=== PATIENT | male | born 1990 | race Caucasian/White ===

== ENCOUNTER 2018-02-21 06:52 | Day surgery (SDC) | payer BC ==
--- NOTE | 2018-02-20 21:36 | PDGENHP ---
History and Physical - Chief Complaint LEFT HIP PAIN - History of Present Illness Diagnosis: 1. Bilateral~Femoroacetabular impingement (VAIBHAV) Mixed type,~with~resultant labral tear 2. Bilateral~Early Osteoarthritis 3. ~~Clinical suspicion of femoral retrotorsion HISTORY OF PRESENT ILLNESS: Christelis a 27 y.o.~~~active male~who I have had the pleasure to consult on today. 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 Josh's~bilateral~hip pain (L>>>R)~started~1 year ago but worsening over last several months, with~no~recalled trauma or injury, and with some~previous complaints in the R hip starting in 2013 which were as severe as his pain now.~ Christeldoes not have~a known history of hip dysplasia, but has a known diagnosis of VAIBHAV with labral tear. Presentation today is of~anterior~bilateral~hip pain with some lateral pain. ~ The hip~does not~wake him~at night and does~click and catch on him. Sitting~ does not present a problem~for him.~Christeldoes~report suffering from lower back pain episodes without correlation to hip pain symptoms, not severe enough that he has sought treatment.~ Christelhas~participated in physical therapy (R hip 6-8 months of PT, L 1 month) ~and has~tried other conservative measures including dry needling.~He~has~ received sufficient symptomatic improvement from dry needling with recent increase in symptoms.~He had~L~hip steroid injections (intra-articular and GT)~ by Dr. Flores this past summer with 100% resolution of pain for 2-3 weeks. Christelhas not~utilized medication for pain management, including NSAID.~ Christelhas used medication for 6~months~intermittently. Christelunderstands that he~has a hip and pelvis problem which should be researched and wishes to get a better understanding of his~hip status, followed by an establishment of a treatment strategy, hoping he~would be able to get back to his~well being active life. History: Past medical history:~~ None which is relevant~ Relevant familial history:~None which is relevant~ Past surgical history:~ None Christelhas never received general anesthesia. I have reviewed, verified and agree with the past medical, surgical, family and social history. Current Medications:~currently has no medications in their medication list. ALLERGIES:~is allergic to sulfa (sulfonamide antibiotics). Objective: Physical Examination: Christelis 5~feet 8~inches tall and weighs 175~Lbs. Christelis AAO x3; rayray~is well-nourished, in NAD. Skin is warm and dry. ~Breathing is non-labored. ~CV with RRR by pulse. Abdomen is soft, NTND. Currently,~rayray~walks with a normal~gait, external rotation of foot progression angle. Trendelenburg sign is~negative~and proprioception is normal,~both~side. Rayray~presents with no~signs of joint laxity. Beightons Score:~0 Lower spine examination is~negative~for sciatic or femoral nerve irritation with negative~SLR &~femoral stretch tests. Range of motion of the spine is normal~for flexion, extension, and rotations, with no~associated pain. Strength, Sensation and pulses are~normal -~bilaterally Ankles and knees exams are~normal~and no~mal-alignment is evident. Rayray~has 1 cm~leg length discrepancy~L<R. Thigh circumference is~symmetric~with no evidence for muscle atrophy~on both~ side. Hip ROM (degrees): FL ER At 90~hip FL IR At 90~hip FL AB AD EX IR Neutral hip ER Neutral hip R 100 45 0 25 5 10 10 50 L 100 40 5 25 5 15 20 40 Specific hip and pelvis tests: Impingement Test DELVIS Roll Add. Longus R +++ +++ Negative Negative L +++ +++ Negative Negative Glut. Med ITB Posterior Imp R Negative 5/5 strength Negative 5/5 strength Negative L Negative 5/5 strength Negative 5/5 strength Negative Squeeze test measured~normal Bony Symphysis pubis is~painful~(+)~to touch while concentric activity of the rectus abdominis,~does not~produce pain at its insertion. Ilio Psos specific tests are~negative for pain during cycling for~both hips~~ Without snap.~ HF has~no weakness or pain~both hips. Anterior~capsule tenderness on the L hip.~ Greater trochanteric burse is~mildly painful on the L hip.~ Piriformis tests: FAIR is~negative,~with no~local signs of neuritis related to sciatic nerve. SIJs examination is~normal~with normal~DELVIS in relation and local tenderness. Hamstrings tests are~negative~functional contraction and negative~tendinopathy both hips. On a daily basis, the following percentages reflectZoya's overall total pain : Deep hip:~80% Greater troch 20% Imaging: Radiology studies which I have personally reviewed, analyzed and measured are below: XR: AP of the hip and pelvis: Performed in a~fair~technique Coccyx to pubic symphysis distance~0.9~cm. 0~degrees caudal, no corrected view [place] Lines are~preserved. No~Pathological signs are seen in the Symphysis Pubis. Minimal~Pathological signs are seen at the Ischial tuberosity. ~ Specific measurements show: NSA~ LCE Sourcil~Angle Sharp's angle Lat. Cam Lat. Pincer C.Over~sign Head~Coverage % ATDmm R 133 33 5 37 + + 12 o'clock 80% 17.7 L 132 32 3 45 + + 1 o'clock 79% 14.3 Pos. wall sign ISS NAD ~~Dysplasia Comments R Negative ++ 11.8~mm Negative L Negative ++ 8~mm Negative Sclerosis Sup. Lat. OA Cysts Joint Space-WBZ Joint Space-Medial R + Negative + 3.4~mm 3.7 mm L + Negative + 3.9~mm 3.3 mm X Table lateral: Anterior cam lesion is~seen~on both hips. Alpha Angle: ~ Right~76~dergrees Left~71~degrees MRI shows:~L hip - 12/07/17: Labral tear with some intrasubstance degeneration, anterolateral subchondral cyst 5mm diameter with cartilage fissuring, some edema Impression and plan:Ra Moreno~is a 27 y.o.~active male~suffering from symptomatic Bilateral~hip pain due to Femoroacetabular impingement (VAIBHAV)~Mixed type,~with~resultant labral tear and associated~Cartilage damage causing significant disability to~him~and altering his~sport and life activities. Physical examination, imaging, and~his~story correspond with the diagnosis mentioned above. I explained that femoroacetabular impingement (VAIBHAV) arises due to a bony or soft tissue conflict between the femur (ball) and acetabulum (socket) caused by an abnormality in the shape of the hip joint. Over time, repetitive impingement can result in damage to the labrum and adjacent surface cartilage within the socket, ultimately giving rise to progressive osteoarthritis of the hip. I explained that although a labral tear can be a source of pain, it is rarely the root of the problem and typically occurs secondary to an underlying abnormality in the shape and mechanics of the hip joint. ~ I reviewed conservative treatment options for VAIBHAV including activity modification to avoid positions of impingement, physical therapy, non-steroidal anti-inflammatory medications, and various injections (corticosteroid and PRP) aimed at reducing inflammation in the hip joint or/and preventing dynamic impingement. PRP injections may promote healing and reduce symptoms in certain cases but it will not repair chronically damaged tissue. Although these measures may help to buy time and reduce current level of symptoms, they are not a definitive solution to the problem given the underlying abnormality in the shape of the hip joint. Patients who have failed conservative management and continue to experience symptoms are candidates for hip arthroscopy, a minimally invasive surgery that can definitively address the underlying problem. Hip arthroscopy typically includes treating the labrum with either repair or reconstruction of the torn labrum; as well as addressing the underlying abnormalities by restoring the normal shape to the hip joint. ~If the cartilage is damaged a Microfracture surgical procedure may also be necessary to help stimulate the growth of fibrocartilage. ~If a patient requires a labral reconstruction or a Microfracture, the initial rehabilitation from the surgery may take longer, but the nursing home results are typically favorable. I reviewed the technical aspects of hip arthroscopy including risks, benefits, and expected course of recovery.~Josh~understands that hip arthroscopy is a minimally invasive outpatient procedure carried out through small incisions on the outer aspect of the hip joint. During surgery, the labral tear will be identified and either repaired or reconstructed~using bone anchors and suture material. Additionally, any excessive bone will be removed with a high-speed beltran to reshape the hip joint and restore normal anatomy. Risks include infection, bleeding, injury to nearby nerves or vessels, stiffness, persistent pain, instability, venous thromboembolic disease, and traction related complications including temporary foot numbness. Rarely, revision surgery may be required to address these problems. Overall recovery takes approximately 4~ 8~months depending on the extent of damage and degree of repair. In the event that the labral tissue quality is inadequate for successful repair and healing,~Christelunderstands that a labral reconstruction will be performed. This procedure entails placing a cadaver tissue graft within the hip joint and stabilizing it with bone anchors to build a new labrum. The overall recovery time for labral reconstruction is similar to that of labral repair, although the surgical procedure takes longer to perform. Josh~will review the info presented. In order to obtain more detailed information regarding the alignment, orientation, and shape of the bony hip and pelvis I will order a CT scan to be performed. The results of the CT scan, including femoral torsion and acetabular version measured values and 3D images, will aid me in deciding on the best treatment strategy and surgical pre-planning. Josh will talk with our surgical oncologist about possible surgery dates. Christelis happy with this plan. I have also supplied~vivienne~with handouts, outlining the expected surgical treatment and rehab involved. I wish~Christelall the best, ~~ Maame Trinidad MD History Information - Allergies/Home Medication List Allergies/Adverse Reactions: Sulfa (Sulfonamide Antibiotics) Allergy (Verified 01/27/18 15:30) Rash Home Medications: Ibuprofen PRN 01/27/18 [Last Taken Unknown] I have personally reviewed and updated: medical history - Social History Smoking Status: Former smoker Review of Systems Review of Systems: Physical Exam Physical Exam:
[2018-02-21] MEDS ORDERED: ACETAMINOPHEN 500 MG TAB PO ONE (07:11)
[2018-02-21] MEDS ORDERED: PREGABALIN 150 MG CAP PO ONE (07:11)
[2018-02-21] MEDS ORDERED: ceFAZolin 2 GM/DEXTROSE 100 ML IV ONE (07:11)
[2018-02-21] MEDS ORDERED: LR 1,000 ML IV ONE (07:17)
[2018-02-21] MEDS ORDERED: BUPIVACAINE 0.25% 30 ML SDV ONE (08:14)
[2018-02-21] MEDS ORDERED: EPINEPHrine 30 MG/30 ML MDV (0.1 MG/0.1 ML) ONE (08:15)
[2018-02-21] MEDS ORDERED: MIDAZOLAM 2 MG/2 ML VIAL ONE (08:49)
[2018-02-21] MEDS ORDERED: MIDAZOLAM 2 MG/2 ML VIAL IVP ONE (08:51)
--- NOTE | 2018-02-21 08:53 | PDANEPAE ---
ANE History of Present Illness L hip labral injury, here for repair ANE Past Medical History - Cardiovascular History Hx Hypertension: No Hx Arrhythmias: No Hx Chest Pain: No Hx Coronary Artery / Peripheral Vascular Disease: No Hx CHF / Valvular Disease: No Hx Palpitations: No - Pulmonary History Hx COPD: No Hx Asthma/Reactive Airway Disease: No Hx Recent Upper Respiratory Infection: No Hx Oxygen in Use at Home: No Hx Sleep Apnea: No Sleep Apnea Screening Result - Last Documented: Negative - Neurologic History Hx Cerebrovascular Accident: No Hx Seizures: No Hx Dementia: No - Endocrine History Hx Diabetes: No - Renal History Hx Renal Disorders: No - Liver History Hx Hepatic Disorders: No - Neurological & Psychiatric Hx Hx Neurological and Psychiatric Disorders: No - Cancer History Hx Cancer: No - Congenital Disorder History Hx 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 - GI History Hx Gastrointestinal Disorders: No - Other Health History Other Health History: NONE - Chronic Pain History Chronic Pain: Yes (TITA HIPS) - Surgical History Prior Surgeries: NONE ANE Review of Systems Review of Systems: - Exercise capacity METS (RN): 6 METS ANE Patient History - Allergies Allergies/Adverse Reactions: Sulfa (Sulfonamide Antibiotics) Allergy (Verified 01/27/18 15:30) Rash - Home Medications Home Medications: Ibuprofen PRN 01/27/18 [Last Taken 02/13/18] Xanax 02/21/18 [Last Taken 02/06/18] - NPO status NPO Since - Liquids (Date): 02/20/18 NPO Since - Liquids (Time): 22:00 NPO Since - Solids (Date): 02/20/18 NPO Since - Solids (Time): 22:00 - Smoking Hx Smoking Status: Former smoker - Family Anes Hx Family Hx Anesthesia Complications: NEG ANE Labs/Vital Signs - Vital Signs Blood Pressure: 129/75 Heart Rate: 78 Respiratory Rate: 15 O2 Sat (%): 96 Height: 172.72 cm Weight: 80.739 kg ANE Physical Exam - Airway Neck exam: FROM Mallampati Score: Class 1 Mouth exam: normal dental/mouth exam - Pulmonary Pulmonary: no respiratory distress - Cardiovascular Cardiovascular: regular rate and rhythym - ASA Status ASA Status: II ANE Anesthesia Plan Anesthesia Plan: general endotracheal anesthesia
[2018-02-21] MEDS ORDERED: fentaNYL 100 MCG/2 ML INJ ONE ×2 (08:56→18:07)
[2018-02-21] MEDS ORDERED: PROPOFOL 200 MG/20 ML VIAL ONE ×3 (08:56→17:12)
[2018-02-21] MEDS ORDERED: SUGAMMADEX SODIUM 200 MG/2 ML VIAL IVP ONE (09:13)
[2018-02-21] MEDS ORDERED: DEXAMETHASONE 4 MG/ML VIAL ONE (09:13)
[2018-02-21] MEDS ORDERED: ONDANSETRON 4 MG/2 ML VIAL ONE ×3 (09:13→18:37)
[2018-02-21] MEDS ORDERED: PHENYLEPHRINE HCL 100 MCG/ML SYR ONE (09:13)
[2018-02-21] MEDS ORDERED: HYDROmorphONE/DILAUDID 2 MG/ML INJ ONE ×3 (10:57→18:07)
[2018-02-21] MEDS ORDERED: METOPROLOL TARTRATE 5 MG/5 ML INJ ONE ×3 (13:51→15:03)
--- NOTE | 2018-02-21 17:01 | POSTANESTH ---
Post Anesthetic Evaluation Cardiovascular Status: Normal, Stable Respiratory Status: Normal, Stable Level of Consciousness/Mental Status: Can Participate in Eval, Alert and Oriented Pain Control: Adequate, Prn Tx Ordered Nausea/Vomiting Control: Adequate, Prn Tx Ordered Complications Possibly Related to Anesthesia: None Noted
[2018-02-21] MEDS ORDERED: METOCLOPRAMIDE 10 MG/2 ML VIAL IVP PRN (17:02)
[2018-02-21] MEDS ORDERED: PROMETHAZINE HCL 25 MG/ML INJ IVP PRN (17:02)
[2018-02-21] MEDS ORDERED: NALOXONE HCL 0.4 MG/ML INJ IVP PRN (17:02)
[2018-02-21] MEDS ORDERED: LR 500 ML IV PRN (17:02)
[2018-02-21] MEDS ORDERED: HYDROmorphONE/DILAUDID 2 MG/ML INJ IVP PRN (17:02)
[2018-02-21] MEDS ORDERED: LABETALOL HCL 5 MG/ML 20 ML MDV IVP PRN (17:02)
[2018-02-21] MEDS ORDERED: ONDANSETRON 4 MG/2 ML VIAL IVP PRN (17:02)
[2018-02-21] MEDS ORDERED: ALBUTEROL 3 ML DEYVIAL IH PRN (17:02)
[2018-02-21] MEDS ORDERED: ACETAMINOPHEN 500 MG TAB PO PRN (17:02)
[2018-02-21] MEDS ORDERED: DIAZEPAM 5 MG/ML 1 ML SYR IVP PRN (17:02)
[2018-02-21] MEDS ORDERED: ceFAZolin 1 GM VIAL ONE ×2 (17:08)
[2018-02-21] MEDS: fentaNYL 100 MCG/2 ML INJ IVP PRN ×2 (18:12→18:20)
[2018-02-21] MEDS ORDERED: DIAZEPAM 5 MG/ML 1 ML SYR ONE (18:21)
[2018-02-21] MEDS ORDERED: oxyCODONE IR 5 MG TAB ONE ×2 (18:53→20:13)
[2018-02-21] MEDS: oxyCODONE IR 5 MG TAB PO PRN ×2 (18:55→20:14)
--- NOTE | 2018-02-21 18:56 | POSTOPPROG ---
Post Op Note Date of Operation: 02/21/18 Surgeon: Vinay Cueto Spanish Lecturer: Dr. Lord Anesthesia: GET(General Endotracheal) Pre-op Diagnosis: Left VAIBHAV Post-op Diagnosis: Same Procedure: Left Hip arthroscopy Inf/Abcess present in the surg proc area at time of surgery?: No
[2018-02-21 19:56] VITALS: BP 142/88
== END 2018-02-21 20:51 | disposition home or self-care (01) ==
LOC: EDSEX 06:52 → FSGY 06:52
PROVIDERS: ATTEND Orthopaedic Surgery Sports Medicine
PROC: 0QQ74ZZ Repair Left Upper Femur, Percutaneous Endoscopic Approach (ICD-10-PCS; principal; 2018-02-21 08:30)
PROC: 0SQB4ZZ Repair Left Hip Joint, Percutaneous Endoscopic Approach (ICD-10-PCS; principal; 2018-02-21 08:30)
PROC: BQ111ZZ Fluoroscopy of Left Hip using Low Osmolar Contrast (ICD-10-PCS; principal; 2018-02-21 08:30)
DX: M25.852 Other specified joint disorders, left hip (principal)
CPT/HCPCS: C1713; J0171; J0690; J1100; J1170; J2250; J2370; J2405; J2704; J3010; J3360

== ENCOUNTER 2018-05-02 08:33 | Day surgery (SDC) | payer BC ==
--- NOTE | 2018-05-01 21:13 | PDGENHP ---
History and Physical - Chief Complaint RIGHT HIP PAIN - History of Present Illness 1. Bilateral~Femoroacetabular impingement (VAIBHAV) Mixed type,~with~resultant labral tear 2. Bilateral~Early Osteoarthritis 3. ~~Clinical suspicion of femoral retrotorsion HISTORY OF PRESENT ILLNESS: Christelis a 27 y.o.~~~active male~who I have had the pleasure to consult on today. I have enjoyed meeting him.~Rayray~lives in 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 Johs's~bilateral~hip pain (L>>>R)~started~1 year ago but worsening over last several months, with~no~recalled trauma or injury, and with some~previous complaints in the R hip starting in 2013 which were as severe as his pain now.~ Christeldoes not have~a known history of hip dysplasia, but has a known diagnosis of VAIBHAV with labral tear. Presentation today is of~anterior~bilateral~hip pain with some lateral pain. ~ The hip~does not~wake him~at night and does~click and catch on him. Sitting~ does not present a problem~for him.~Christeldoes~report suffering from lower back pain episodes without correlation to hip pain symptoms, not severe enough that he has sought treatment.~ Christelhas~participated in physical therapy (R hip 6-8 months of PT, L 1 month) ~and has~tried other conservative measures including dry needling.~He~has~ received sufficient symptomatic improvement from dry needling with recent increase in symptoms.~He had~L~hip steroid injections (intra-articular and GT)~ by Dr. Flores this past summer with 100% resolution of pain for 2-3 weeks. Christelhas not~utilized medication for pain management, including NSAID.~ Christelhas used medication for 6~months~intermittently. Christelunderstands that he~has a hip and pelvis problem which should be researched and wishes to get a better understanding of his~hip status, followed by an establishment of a treatment strategy, hoping he~would be able to get back to his~well being active life. History: Past medical history:~~ None which is relevant~ Relevant familial history:~None which is relevant~ Past surgical history:~ Left Hip Arthroscopy Christelhad no issues with general anesthesia. I have reviewed, verified and agree with the past medical, surgical, family and social history. Current Medications:~currently has no medications in their medication list. ALLERGIES:~is allergic to sulfa (sulfonamide antibiotics). Objective: Physical Examination: Christelis 5~feet 8~inches tall and weighs 175~Lbs. Christelis AAO x3; rayray~is well-nourished, in NAD. Skin is warm and dry. ~Breathing is non-labored. ~CV with RRR by pulse. Abdomen is soft, NTND. Currently,~rayray~walks with a normal~gait, external rotation of foot progression angle. Trendelenburg sign is~negative~and proprioception is normal,~both~side. Rayray~presents with no~signs of joint laxity. Beightons Score:~0 Lower spine examination is~negative~for sciatic or femoral nerve irritation with negative~SLR &~femoral stretch tests. Range of motion of the spine is normal~for flexion, extension, and rotations, with no~associated pain. Strength, Sensation and pulses are~normal -~bilaterally Ankles and knees exams are~normal~and no~mal-alignment is evident. He~has 1 cm~leg length discrepancy~L<R. Thigh circumference is~symmetric~with no evidence for muscle atrophy~on both~ side. Hip ROM (degrees): FL ER At 90~hip FL IR At 90~hip FL AB AD EX IR Neutral hip ER Neutral hip R 100 45 0 25 5 10 10 50 L 100 40 5 25 5 15 20 40 Specific hip and pelvis tests: Impingement Test DELVIS Roll Add. Longus R +++ +++ Negative Negative L +++ +++ Negative Negative Glut. Med ITB Posterior Imp R Negative 5/5 strength Negative 5/5 strength Negative L Negative 5/5 strength Negative 5/5 strength Negative Squeeze test measured~normal Bony Symphysis pubis is~painful~(+)~to touch while concentric activity of the rectus abdominis,~does not~produce pain at its insertion. Ilio Psos specific tests are~negative for pain during cycling for~both hips~~ Without snap.~ HF has~no weakness or pain~both hips. Anterior~capsule tenderness on the L hip.~ Greater trochanteric burse is~mildly painful on the L hip.~ Piriformis tests: FAIR is~negative,~with no~local signs of neuritis related to sciatic nerve. SIJs examination is~normal~with normal~DELVIS in relation and local tenderness. Hamstrings tests are~negative~functional contraction and negative~tendinopathy both hips. On a daily basis, the following percentages reflect~Josh's overall total pain : Deep hip:~80% Greater troch 20% Imaging: Radiology studies which I have personally reviewed, analyzed and measured are below: XR: AP of the hip and pelvis: Performed in a~fair~technique Coccyx to pubic symphysis distance~0.9~cm. 0~degrees caudal, no corrected view [place] Lines are~preserved. No~Pathological signs are seen in the Symphysis Pubis. Minimal~Pathological signs are seen at the Ischial tuberosity. ~ Specific measurements show: NSA~ LCE Sourcil~Angle Sharp's angle Lat. Cam Lat. Pincer C.Over~sign Head~Coverage % ATDmm R 133 33 5 37 + + 12 o'clock 80% 17.7 L 132 32 3 45 + + 1 o'clock 79% 14.3 Pos. wall sign ISS NAD ~~Dysplasia Comments R Negative ++ 11.8~mm Negative L Negative ++ 8~mm Negative Sclerosis Sup. Lat. OA Cysts Joint Space-WBZ Joint Space-Medial R + Negative + 3.4~mm 3.7 mm L + Negative + 3.9~mm 3.3 mm X Table lateral: Anterior cam lesion is~seen~on both hips. Alpha Angle: ~ Right~76~dergrees Left~71~degrees MRI shows:~L hip - 12/07/17: Labral tear with some intrasubstance degeneration, anterolateral subchondral cyst 5mm diameter with cartilage fissuring, some edema Impression and plan:Ra Moreno~is a 27 y.o.~active male~suffering from symptomatic Bilateral~hip pain due to Femoroacetabular impingement (VAIBHAV)~Mixed type,~with~resultant labral tear and associated~Cartilage damage causing significant disability to~him~and altering his~sport and life activities. Physical examination, imaging, and~his~story correspond with the diagnosis mentioned above. I explained that femoroacetabular impingement (VAIBHAV) arises due to a bony or soft tissue conflict between the femur (ball) and acetabulum (socket) caused by an abnormality in the shape of the hip joint. Over time, repetitive impingement can result in damage to the labrum and adjacent surface cartilage within the socket, ultimately giving rise to progressive osteoarthritis of the hip. I explained that although a labral tear can be a source of pain, it is rarely the root of the problem and typically occurs secondary to an underlying abnormality in the shape and mechanics of the hip joint. ~ I reviewed conservative treatment options for VAIBHAV including activity modification to avoid positions of impingement, physical therapy, non-steroidal anti-inflammatory medications, and various injections (corticosteroid and PRP) aimed at reducing inflammation in the hip joint or/and preventing dynamic impingement. PRP injections may promote healing and reduce symptoms in certain cases but it will not repair chronically damaged tissue. Although these measures may help to buy time and reduce current level of symptoms, they are not a definitive solution to the problem given the underlying abnormality in the shape of the hip joint. Patients who have failed conservative management and continue to experience symptoms are candidates for hip arthroscopy, a minimally invasive surgery that can definitively address the underlying problem. Hip arthroscopy typically includes treating the labrum with either repair or reconstruction of the torn labrum; as well as addressing the underlying abnormalities by restoring the normal shape to the hip joint. ~If the cartilage is damaged a Microfracture surgical procedure may also be necessary to help stimulate the growth of fibrocartilage. ~If a patient requires a labral reconstruction or a Microfracture, the initial rehabilitation from the surgery may take longer, but the [facility] results are typically favorable. I reviewed the technical aspects of hip arthroscopy including risks, benefits, and expected course of recovery.~Josh~understands that hip arthroscopy is a minimally invasive outpatient procedure carried out through small incisions on the outer aspect of the hip joint. During surgery, the labral tear will be identified and either repaired or reconstructed~using bone anchors and suture material. Additionally, any excessive bone will be removed with a high-speed beltran to reshape the hip joint and restore normal anatomy. Risks include infection, bleeding, injury to nearby nerves or vessels, stiffness, persistent pain, instability, venous thromboembolic disease, and traction related complications including temporary foot numbness. Rarely, revision surgery may be required to address these problems. Overall recovery takes approximately 4~ 8~months depending on the extent of damage and degree of repair. In the event that the labral tissue quality is inadequate for successful repair and healing,~Christelunderstands that a labral reconstruction will be performed. This procedure entails placing a cadaver tissue graft within the hip joint and stabilizing it with bone anchors to build a new labrum. The overall recovery time for labral reconstruction is similar to that of labral repair, although the surgical procedure takes longer to perform. Josh~will review the info presented. In order to obtain more detailed information regarding the alignment, orientation, and shape of the bony hip and pelvis I will order a CT scan to be performed. The results of the CT scan, including femoral torsion and acetabular version measured values and 3D images, will aid me in deciding on the best treatment strategy and surgical pre-planning. Josh will talk with our surgical appliances salesperson about possible surgery dates. Christelis happy with this plan. I have also supplied~vivienne~with handouts, outlining the expected surgical treatment and rehab involved. I wish~Christelall the best, ~~ Maame Trinidad MD History Information - Allergies/Home Medication List Allergies/Adverse Reactions: Sulfa (Sulfonamide Antibiotics) Allergy (Verified 04/20/18 15:22) Rash Home Medications: Ibuprofen PRN 01/27/18 [Last Taken 02/13/18] Gabapentin 04/20/18 [Last Taken Unknown] Tylenol 04/20/18 [Last Taken Unknown] I have personally reviewed and updated: medical history - Social History Smoking Status: Current some day smoker Review of Systems Review of Systems: Physical Exam Physical Exam:
[~2018-05-02 08:33] MED LIST: DEXAMETHASONE 4 MG/ML VIAL ONE; LIDOCAINE 2% 5 ML SDV ONE; ONDANSETRON 4 MG/2 ML VIAL ONE; PROPOFOL 200 MG/20 ML VIAL ONE; ROCURONIUM 50 MG/5 ML VIAL ONE; fentaNYL 250 MCG/5 ML INJ ONE
[2018-05-02] MEDS ORDERED: MEPERIDINE 25 MG/0.5 ML AMP IVP PRN (08:37)
[2018-05-02] MEDS ORDERED: NALOXONE HCL 0.4 MG/ML INJ IVP PRN (08:37)
[2018-05-02] MEDS ORDERED: ONDANSETRON 4 MG/2 ML VIAL IVP PRN (08:37)
[2018-05-02] MEDS ORDERED: PHENYLEPHRINE HCL 100 MCG/ML SYR IVP PRN (08:37)
[2018-05-02] MEDS ORDERED: fentaNYL 100 MCG/2 ML INJ IVP PRN (08:37)
[2018-05-02] MEDS ORDERED: METOCLOPRAMIDE 10 MG/2 ML VIAL IVP PRN (08:37)
[2018-05-02] MEDS ORDERED: LR 500 ML IV PRN (08:37)
[2018-05-02] MEDS ORDERED: MIDAZOLAM 2 MG/2 ML VIAL IVP ONE (08:37)
[2018-05-02] MEDS ORDERED: ceFAZolin 2 GM/DEXTROSE 100 ML IV ONE (08:44)
[2018-05-02] MEDS ORDERED: ACETAMINOPHEN 500 MG TAB PO ONE (08:44)
[2018-05-02] MEDS ORDERED: PREGABALIN 150 MG CAP PO ONE (08:44)
[2018-05-02] MEDS ORDERED: LR 1,000 ML IV ONE (08:46)
--- NOTE | 2018-05-02 09:23 | PDANEPAE ---
ANE Past Medical History - Cardiovascular History Hx Hypertension: No Hx Arrhythmias: No Hx Chest Pain: No Hx Coronary Artery / Peripheral Vascular Disease: No Hx CHF / Valvular Disease: No Hx Palpitations: No - Pulmonary History Hx COPD: No Hx Asthma/Reactive Airway Disease: No Hx Recent Upper Respiratory Infection: No Hx Oxygen in Use at Home: No Hx Sleep Apnea: No Sleep Apnea Screening Result - Last Documented: Negative - Neurologic History Hx Cerebrovascular Accident: No Hx Seizures: No Hx Dementia: No - Endocrine History Hx Diabetes: No - Renal History Hx Renal Disorders: No - Liver History Hx Hepatic Disorders: No - Neurological & Psychiatric Hx Hx Neurological and Psychiatric Disorders: No - Cancer History Hx Cancer: No - Congenital Disorder History Hx 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 - GI History Hx Gastrointestinal Disorders: No - Other Health History Other Health History: none - Chronic Pain History Chronic Pain: Yes (TITA HIPS) - Surgical History Prior Surgeries: 02/21/18 left hip arthroscopy/ femoroplasty with Leila-Rony ANE Review of Systems Review of Systems: - Exercise capacity METS (RN): 6 METS ANE Patient History - Allergies Allergies/Adverse Reactions: Sulfa (Sulfonamide Antibiotics) Allergy (Verified 04/20/18 15:22) Rash - Home Medications Home Medications: Ibuprofen PRN 01/27/18 [Last Taken 02/13/18] Gabapentin 04/20/18 [Last Taken Unknown] Tylenol 04/20/18 [Last Taken Unknown] Oxycodone-Acetaminophen 5-325 05/02/18 [Last Taken 05/01/18] - NPO status NPO Since - Liquids (Date): 05/02/18 NPO Since - Liquids (Time): 06:30 NPO Since - Solids (Date): 05/01/18 NPO Since - Solids (Time): 21:30 - Smoking Hx Smoking Status: Current some day smoker Marijuana use: Yes - Family Anes Hx Family Hx Anesthesia Complications: none ANE Labs/Vital Signs - Vital Signs Blood Pressure: 135/85 Heart Rate: 72 Respiratory Rate: 16 O2 Sat (%): 96 Height: 172.72 cm Weight: 80.739 kg ANE Physical Exam - Airway Neck exam: FROM Mallampati Score: Class 1 Mouth exam: normal dental/mouth exam - Pulmonary Pulmonary: no respiratory distress, no rales or rhonchi, clear to auscultation - Cardiovascular Cardiovascular: regular rate and rhythym, no murmur, rub, or gallop - ASA Status ASA Status: II
[2018-05-02] MEDS ORDERED: SCOPOLAMINE HYDROBROMIDE 1 MG/3 DAYS PATCH TD SCH (09:30)
[2018-05-02] MEDS ORDERED: EPINEPHrine 30 MG/30 ML MDV (0.1 MG/0.1 ML) ONE (09:36)
[2018-05-02] MEDS ORDERED: BUPIVACAINE/EPI 0.25% 30 ML SDV ONE (09:36)
[2018-05-02] MEDS ORDERED: MIDAZOLAM 2 MG/2 ML VIAL ONE (11:18)
[2018-05-02] MEDS ORDERED: ePHEDrine SULFATE 25 MG/5 ML SYR ONE (12:12)
[2018-05-02] MEDS ORDERED: ROCURONIUM 50 MG/5 ML VIAL ONE ×3 (12:12→14:27)
[2018-05-02] MEDS ORDERED: fentaNYL 100 MCG/2 ML INJ ONE ×4 (13:09→14:43)
[2018-05-02] MEDS ORDERED: NITROGLYCERIN 50 MG/10 ML SDV IV ONE (14:29)
[2018-05-02] MEDS ORDERED: ESMOLOL HCL 100 MG/10 ML VIAL IV ONE ×2 (15:34)
[2018-05-02] MEDS ORDERED: SUGAMMADEX SODIUM 200 MG/2 ML VIAL IVP ONE (16:00)
[2018-05-02] MEDS: PROMETHAZINE HCL 25 MG/ML INJ IVP PRN ×4 (16:16→16:59)
[2018-05-02] MEDS ORDERED: PROMETHAZINE HCL 25 MG/ML INJ ONE (16:19)
--- NOTE | 2018-05-02 16:27 | POSTANESTH ---
Post Anesthetic Evaluation Cardiovascular Status: Normal, Stable Respiratory Status: Normal, Stable Level of Consciousness/Mental Status: Can Participate in Eval Pain Control: Adequate, Prn Tx Ordered Nausea/Vomiting Control: Inadeq, Add Tx Reqired Complications Possibly Related to Anesthesia: None Noted
[2018-05-02] MEDS ORDERED: HYDROmorphONE/DILAUDID 2 MG/ML INJ ONE (16:32)
[2018-05-02] MEDS: HYDROmorphONE/DILAUDID 2 MG/ML INJ IVP PRN ×4 (16:34→17:49)
--- NOTE | 2018-05-02 16:50 | POSTOPPROG ---
Post Op Note Date of Operation: 05/02/18 Surgeon: Vinay Cueto Ergonomics Consultant: Dr. Lord Anesthesia: GET(General Endotracheal) Pre-op Diagnosis: RIGHT VAIBHAV Post-op Diagnosis: RIGHT VAIBHAV Procedure: Right Hip Arthroscopy Inf/Abcess present in the surg proc area at time of surgery?: No
[2018-05-02] MEDS ORDERED: ONDANSETRON 4 MG/2 ML VIAL ONE (17:04)
[2018-05-02] MEDS ORDERED: oxyCODONE IR 5 MG TAB ONE ×2 (17:42→18:36)
[2018-05-02] MEDS: oxyCODONE IR 5 MG TAB PO PRN ×2 (17:43→18:37)
[2018-05-02 18:39] VITALS: BP 123/73
== END 2018-05-02 19:04 | disposition home or self-care (01) ==
LOC: FSGY 08:33
PROVIDERS: ATTEND Orthopaedic Surgery Sports Medicine
PROC: 0SQ94ZZ Repair Right Hip Joint, Percutaneous Endoscopic Approach (ICD-10-PCS; principal; 2018-05-02 10:00)
PROC: 0QQ64ZZ Repair Right Upper Femur, Percutaneous Endoscopic Approach (ICD-10-PCS; principal; 2018-05-02 10:00)
DX: M25.851 Other specified joint disorders, right hip (principal); M16.11 Unilateral primary osteoarthritis, right hip
CPT/HCPCS: C1713; J0171; J0690; J1100; J1170; J2250; J2405; J2550; J2704; J3010